=== PATIENT | female | born 1975 | race Caucasian/White ===

== ENCOUNTER 2016-08-04 11:28 | Emergency (ER) | payer MEDICAID ==
[~2016-08-04] VITALS: Ht 167.6 cm; Wt 58.0 kg
[2016-08-04 13:04] VITALS: BP 125/80
== END 2016-08-04 15:11 | disposition home or self-care (01) ==
LOC: ER 14:34
DX: H61.21 Impacted cerumen, right ear (principal); J06.9 Acute upper respiratory infection, unspecified
CPT/HCPCS: 99283

== ENCOUNTER 2017-02-20 15:58 | Emergency (ER) | payer MEDICAID ==
[~2017-02-20] VITALS: Ht 165.1 cm; Wt 65.0 kg
[2017-02-20] MEDS ORDERED: KETOROLAC 60MG/2ML VIAL IM ONE (17:00)
[2017-02-20 17:04] VITALS: BP 121/63
== END 2017-02-20 17:54 | disposition home or self-care (01) ==
LOC: ER 15:58
DX: R51 Headache (principal); F17.200 Nicotine dependence, unspecified, uncomplicated
CPT/HCPCS: 81025; 96372; 99283; J1885

== ENCOUNTER 2023-08-26 13:33 | Emergency (ER) | payer BC, MEDICAID ==
[~2023-08-26] VITALS: Ht 165.1 cm; Wt 66.0 kg
[2023-08-26 13:42] VITALS: O2SAT 99
[2023-08-26] MEDS: SODIUM CHLORIDE 0.9% 500 ML IV ONE (16:15)
[2023-08-26] MEDS: SUMATRIPTAN SUCCINATE 6MG/0.5ML VIAL SUBCUT ONE (16:15)
[2023-08-26] MEDS: ACETAMINOPHEN 325MG TABLET PO ONE (16:15)
[2023-08-26] MEDS: SUMATRIPTAN SUCCINATE 6MG/0.5ML VIAL SUBCUT SCH (17:45)
[2023-08-26] MEDS: ONDANSETRON HCL 4MG/2ML INJ IV ONE (17:57)
[2023-08-26] MEDS ORDERED: IBUP-1523 MT (18:01)
[2023-08-26] MEDS ORDERED: TOPUD MT (18:01)
[2023-08-26] MEDS ORDERED: ONDA4TAB50 MT (18:01)
[2023-08-26] MEDS ORDERED: IMIT50 MT (18:01)
[2023-08-26 18:46] VITALS: BP 128/74; PULSE 74; RESP 16; TEMP 98
== END 2023-08-26 18:57 | disposition home or self-care (01) ==
LOC: ER 14:20
DX: G43.909 Migraine, unspecified, not intractable, without status migrainosus (principal)
CPT/HCPCS: 96372; 96374; 99284; J2405; J3030; J7040; Z7610 ×2

== ENCOUNTER 2023-10-29 18:18 | Emergency (ER) | payer BC, MEDICAID ==
[~2023-10-29] VITALS: Ht 165.1 cm; Wt 68.0 kg
[~2023-10-29 18:18] MED LIST: IBUP-1523 MT; IMIT50 MT; ONDA4TAB50 MT; TOPUD MT
[2023-10-29 18:27] VITALS: BP 121/91; PULSE 87; RESP 20; TEMP 98.7; O2SAT 100
[2023-10-29] MEDS ORDERED: IBUP-2028 MT (19:34)
[2023-10-29] MEDS ORDERED: TOPUD MT (19:34)
== END 2023-10-29 19:57 | disposition home or self-care (01) ==
LOC: ER 18:18
DX: U07.1 COVID-19 (principal); B34.9 Viral infection, unspecified; Z79.899 Other long term (current) drug therapy
CPT/HCPCS: 99282